=== PATIENT | female | born 1995 | race African-American/Black ===

== ENCOUNTER 2017-07-06 15:43 | Emergency (ER) | payer MEDICAID ==
[~2017-07-06] VITALS: Ht 162.6 cm; Wt 66.0 kg
[2017-07-06 19:19] LABS: CLARITY URINE CLOUDY (CLEAR); COLOR URINE DARK YELLOW (YELLOW); KETONES URINE 3+ (NEGATIVE); LEUKOCYTE ESTERASE URINE 3+ (NEGATIVE); NITRITE URINE NEGATIVE (NEGATIVE); OCCULT BLOOD URINE NEGATIVE (NEGATIVE); PH URINE 6.5 (4.5-8.0); PROTEIN URINE 1+ (NEGATIVE); SPECIFIC GRAVITY URINE 1.035 (1.005-1.030)
[2017-07-06 19:40] VITALS: BP 128/78
[2017-07-09 04:14] LABS: CHLAMYDIA TRACHOMATIS NAA Negative (Negative); NEISSERIA GONORRHOEAE NAA Negative (Negative)
== END 2017-07-06 19:49 | disposition home or self-care (01) ==
LOC: ER 16:56
DX: N39.0 Urinary tract infection, site not specified (principal); H00.015 Hordeolum externum left lower eyelid; R56.9 Unspecified convulsions; Z98.890 Other specified postprocedural states; Z91.040 Latex allergy status
CPT/HCPCS: 81003; 81025; 87077; 87086; 87210; 87491; 87591; 99284; Z7610